=== PATIENT | female | born 1940 | race Two or more races ===

== ENCOUNTER 2022-07-27 19:15 | Emergency (ER) | payer OTHER ==
[~2022-07-27] VITALS: Ht 152.4 cm; Wt 68.9 kg
[2022-07-27] MEDS ORDERED: ISORDIL10 MG PO (19:25)
[2022-07-27] MEDS ORDERED: PLAVIX75 MG PO (19:25)
[2022-07-27] MEDS ORDERED: LEVEMIR100 UNIT/1 SQ (19:26)
[2022-07-27] MEDS ORDERED: LEVOTHYROXINE25 MCG PO (19:26)
== END 2022-07-28 03:11 | disposition home or self-care (01) ==
LOC: ER 19:15
DX: I10 Essential (primary) hypertension (principal); R07.89 Other chest pain; I50.9 Heart failure, unspecified; E11.9 Type 2 diabetes mellitus without complications; Z79.4 Long term (current) use of insulin; E03.9 Hypothyroidism, unspecified; Z88.0 Allergy status to penicillin; Z88.8 Allergy status to other drugs, medicaments and biological substances; Z20.822 Contact with and (suspected) exposure to COVID-19